=== PATIENT | female | born 1990 | race American Indian/Alaskan Native ===

== ENCOUNTER 2018-09-27 10:13 | Emergency (ER) | payer MEDICAID ==
--- NOTE | 2018-09-27 10:47 | Emergency Department Report ---
ED General Adult HPI - General Chief complaint: Nausea/Vomiting/Diarrhea Stated complaint: VOMIT BLOOD Time Seen by Provider: 09/27/18 10:41 Source: patient Mode of arrival: Ambulatory Limitations: No Limitations - History of Present Illness Initial comments: Patient is 28-year-old female with no significant past medical history. Patient presented to the ER stating that she had an accident one week ago but today she woke up and she had cough with some blood in it. Patient denied any fever, chills, shortness of breath. The patient denied any chest pain. - Related Data Home Medications Medication Instructions Recorded Confirmed Last Taken Pnv,Calcium 72/Iron/Folic Acid 1 tab PO DAILY 02/17/14 02/17/14 02/15/14 09:00 [Preplus Ca-Fe 27 mg-FA 1 mg Tb] Previous Rx's Medication Instructions Recorded Last Taken Type Ferrous Sulfate [Feosol 325 MG tab] 325 mg PO BID #60 tablet 02/18/14 Unknown Rx Ibuprofen [Motrin 600 MG tab] 600 mg PO Q6H PRN #30 tablet 02/18/14 Unknown Rx oxyCODONE /ACETAMINOPHEN [Percocet 1 tab PO Q6HR PRN #20 tablet 02/18/14 Unknown Rx 5/325] HYDROcodone/APAP 5-325 [[place] 1 each PO Q6HR PRN #8 tablet 01/25/15 Unknown Rx 5/325] Ondansetron [Zofran Odt] 4 mg SL Q6H PRN #8 tab.rapdis 01/25/15 Unknown Rx Hyoscyamine Subl [Levsin Sl 0.125 0.125 mg SL Q6HR PRN #10 tab 04/29/15 Unknown Rx TAB] Ondansetron [Zofran Odt] 4 mg PO Q6H PRN #14 tab.rapdis 04/29/15 Unknown Rx Sulfamethoxazole/Trimethoprim 1 each PO BID #14 tablet 04/29/15 Unknown Rx [Bactrim DS TAB] traMADol [Ultram] 50 mg PO Q6HR PRN #14 tablet 04/29/15 Unknown Rx Allergies Allergy/AdvReac Type Severity Reaction Status Date / Time metoclopramide HCl Allergy Mild Hives Verified 04/28/15 18:56 [From [facility]] ED Review of Systems ROS: Stated complaint: VOMIT BLOOD Other details as noted in HPI Comment: All other systems reviewed and negative Constitutional: denies: chills, fever Respiratory: denies: cough, shortness of breath, SOB with exertion, SOB at rest Cardiovascular: denies: chest pain, palpitations Gastrointestinal: denies: abdominal pain, nausea Musculoskeletal: denies: back pain ED Past Medical Hx - Past Medical History Previous Medical History?: Yes Hx Hypertension: No Hx Congestive Heart Failure: No Hx Diabetes: No Hx Deep Vein Thrombosis: No Hx Renal Disease: No Hx Sickle Cell Disease: No Hx Seizures: No Hx Asthma: No Hx COPD: No Hx HIV: No Additional medical history: "brain tumor from " - Surgical History Past Surgical History?: No - Social History Smoking Status: Current Every Day Smoker Substance Use Type: None - Medications Home Medications: Home Medications Medication Instructions Recorded Confirmed Last Taken Type Pnv,Calcium 72/Iron/Folic Acid 1 tab PO DAILY 02/17/14 02/17/14 02/15/14 09:00 History [Preplus Ca-Fe 27 mg-FA 1 mg Tb] Ferrous Sulfate [Feosol 325 MG tab] 325 mg PO BID #60 tablet 02/18/14 Unknown Rx Ibuprofen [Motrin 600 MG tab] 600 mg PO Q6H PRN #30 tablet 02/18/14 Unknown Rx oxyCODONE /ACETAMINOPHEN [Percocet 1 tab PO Q6HR PRN #20 tablet 02/18/14 Unknown Rx 5/325] HYDROcodone/APAP 5-325 [[place] 1 each PO Q6HR PRN #8 tablet 01/25/15 Unknown Rx 5/325] Ondansetron [Zofran Odt] 4 mg SL Q6H PRN #8 tab.rapdis 01/25/15 Unknown Rx Hyoscyamine Subl [Levsin Sl 0.125 0.125 mg SL Q6HR PRN #10 tab 04/29/15 Unknown Rx TAB] Ondansetron [Zofran Odt] 4 mg PO Q6H PRN #14 tab.rapdis 04/29/15 Unknown Rx Sulfamethoxazole/Trimethoprim 1 each PO BID #14 tablet 04/29/15 Unknown Rx [Bactrim DS TAB] traMADol [Ultram] 50 mg PO Q6HR PRN #14 tablet 04/29/15 Unknown Rx ED Physical Exam - General Limitations: No Limitations General appearance: alert, in no apparent distress - Head Head exam: Present: atraumatic, normocephalic, normal inspection - Eye Eye exam: Present: normal appearance - ENT ENT exam: Present: normal exam, normal orophraynx, mucous membranes moist - Neck Neck exam: Present: normal inspection, full ROM. Absent: tenderness, meningismus, lymphadenopathy, thyromegaly - Respiratory Respiratory exam: Present: normal lung sounds bilaterally - Cardiovascular Cardiovascular Exam: Present: regular rate, normal rhythm, normal heart sounds - GI/Abdominal GI/Abdominal exam: Present: soft, normal bowel sounds. Absent: distended, tenderness, guarding, rebound, rigid, organomegaly, mass, bruit, pulsatile mass, hernia - Extremities Exam Extremities exam: Present: normal inspection, full ROM, normal capillary refill. Absent: tenderness, pedal edema, calf tenderness - Back Exam Back exam: Present: normal inspection, full ROM. Absent: CVA tenderness (R), CVA tenderness (L) - Neurological Exam Neurological exam: Present: alert, oriented X3, CN II-XII intact, normal gait, reflexes normal - Skin Skin exam: Present: warm, intact, normal color ED Course Vital Signs 09/27/18 09/27/18 10:19 10:41 Temperature 98.1 F Pulse Rate 57 L Respiratory 16 16 Rate O2 Sat by Pulse 100 Oximetry ED Medical Decision Making - Radiology Data Radiology results: report reviewed Chest x-ray is unremarkable. Critical care attestation.: If time is entered above; I have spent that time in minutes in the direct care of this critically ill patient, excluding procedure time. ED Disposition Clinical Impression: Hemoptysis Disposition: - TO HOME OR SELFCARE Is pt being admited?: No Condition: Stable Instructions: Acute Hemoptysis (ED) Referrals: SUMIT GARCIA MD [Referring] - 3-5 Days
--- NOTE | 2018-09-27 11:04 | XRay Report ---
AP CHEST: HISTORY: chest pain AP view of the chest demonstrates a normal mediastinal and cardiac contour with clear lungs and normal bony and soft tissue structures. IMPRESSION: Unremarkable AP chest.
== END 2018-09-27 11:40 | disposition home or self-care (01) ==
LOC: ED 10:13
DX: R04.2 Hemoptysis (principal); F17.200 Nicotine dependence, unspecified, uncomplicated; Z88.8 Allergy status to other drugs, medicaments and biological substances
CPT/HCPCS: 71045; 99283

== ENCOUNTER 2019-11-12 15:47 | Emergency (ER) | payer MEDICAID, OTHER ==
[2019-11-12 16:29] VITALS: BP 121/43
--- NOTE | 2019-11-12 16:35 | Emergency Department Report ---
ED Rash HPI - HPI Chief Complaint: Skin Rash Stated Complaint: BREAKING OUT Time Seen by Provider: 11/12/19 16:31 Location: Other Suspected Cause: Other Rash Symptoms: Yes Itching, No Facial Swelling, No Tongue/Oral Swelling, No Breathing Difficulties, No Choking Sensation, No Wheezing/Dyspnea, No Peeling, No Blistering, No Fever, No Lightheaded, No Malaise, No Myalgias Severity: mild Other History: Patient is a 29-year-old -[place] female that comes to the ER with HER-2 children today. The small child has scabies. Since the 5-yea r-old is broken out the older child and now the mother has a similar rash. No systemic symptoms. Vital signs stable. ED Review of Systems ROS: Stated complaint: BREAKING OUT Other details as noted in HPI Comment: All other systems reviewed and negative ED Past Medical Hx - Past Medical History Previous Medical History?: Yes Hx Hypertension: No Hx Congestive Heart Failure: No Hx Diabetes: No Hx Deep Vein Thrombosis: No Hx Renal Disease: No Hx Sickle Cell Disease: No Hx Seizures: No Hx Asthma: No Hx COPD: No Hx HIV: No Additional medical history: "brain tumor from " - Surgical History Past Surgical History?: No - Family History Family history: no significant - Social History Smoking Status: Current Every Day Smoker Substance Use Type: None - Medications Home Medications: Home Medications Medication Instructions Recorded Confirmed Last Taken Type Pnv,Calcium 72/Iron/Folic Acid 1 tab PO DAILY 02/17/14 02/17/14 02/15/14 09:00 History [Preplus Ca-Fe 27 mg-FA 1 mg Tb] Ferrous Sulfate [Feosol 325 MG tab] 325 mg PO BID #60 tablet 02/18/14 Unknown Rx Ibuprofen [Motrin 600 MG tab] 600 mg PO Q6H PRN #30 tablet 02/18/14 Unknown Rx oxyCODONE /ACETAMINOPHEN [Percocet 1 tab PO Q6HR PRN #20 tablet 02/18/14 Unknown Rx 5/325] HYDROcodone/APAP 5-325 [[place] 1 each PO Q6HR PRN #8 tablet 01/25/15 Unknown Rx 5/325] Ondansetron [Zofran Odt] 4 mg SL Q6H PRN #8 tab.rapdis 01/25/15 Unknown Rx Hyoscyamine Subl [Levsin Sl 0.125 0.125 mg SL Q6HR PRN #10 tab 04/29/15 Unknown Rx TAB] Ondansetron [Zofran Odt] 4 mg PO Q6H PRN #14 tab.rapdis 04/29/15 Unknown Rx Sulfamethoxazole/Trimethoprim 1 each PO BID #14 tablet 04/29/15 Unknown Rx [Bactrim DS TAB] traMADoL [Ultram] 50 mg PO Q6HR PRN #14 tablet 04/29/15 Unknown Rx Permethrin 5% [Acticin 5% CREAM] 1 applicatio TP ONCE #1 tube 11/12/19 Unknown Rx Rash Exam - Exam General: Vital signs noted. No distress. Alert and acting appropriately. HEENT: No Periorbital Edema, No Conjuctival Injection, No Chemosis, No Perioral Edema, No Tongue Edema, No Uvular Edema, No Compromised Airway, No Drooling Lungs: Yes Good Air Exchange (Normal Breath Sounds), No Wheezes, No Ronchi, No Stridor, No Cough, No Labored Respirations, No Retractions, No Use of Accessory Muscles, No Other Abnormal Lung Sounds Heart: Yes Regular, No Murmur Skin: Yes Other Other: Positive: Abdomen Normal, Neurologic Normal, Musculoskeletal Normal ED Course Vital Signs 11/12/19 16:28 Temperature 98.7 F Pulse Rate 67 Respiratory 18 Rate Blood Pressure 121/43 O2 Sat by Pulse 99 Oximetry ED Medical Decision Making - Medical Decision Making SON HAS SCABIES Rash consistent with scabies. Patient being discharged home with Elimite. Vital Signs 11/12/19 16:28 Temperature 98.7 F Pulse Rate 67 Respiratory 18 Rate Blood Pressure 121/43 O2 Sat by Pulse 99 Oximetry - Differential Diagnosis RASH Critical care attestation.: If time is entered above; I have spent that time in minutes in the direct care of this critically ill patient, excluding procedure time. ED Disposition Clinical Impression: Scabies Disposition: DC-01 TO HOME OR SELFCARE Is pt being admited?: No Does the pt Need Aspirin: No Condition: Stable Instructions: Scabies (ED) Prescriptions: Permethrin 5% [Acticin 5% CREAM] 1 applicatio TP ONCE #1 tube Referrals: ROC FUENTES MD [Staff Physician] - 3-5 Days Time of Disposition: 16:32
== END 2019-11-12 16:38 | disposition home or self-care (01) ==
LOC: ED 15:47
DX: B86 Scabies (principal); F17.200 Nicotine dependence, unspecified, uncomplicated; Z79.1 Long term (current) use of non-steroidal anti-inflammatories (NSAID); Z79.899 Other long term (current) drug therapy
CPT/HCPCS: 99282

== ENCOUNTER 2021-02-22 10:12 | Emergency (ER) | payer OTHER ==
[2021-02-22 10:26] VITALS: BP 110/66
--- NOTE | 2021-02-22 10:44 | Emergency Department Report ---
ED ENT HPI - General Chief complaint: Earache Stated complaint: LFT EAR HURT Time Seen by Provider: 02/22/21 10:33 Source: patient Mode of arrival: Ambulatory Limitations: No Limitations - History of Present Illness Initial comments: This is a 31-year-old female nontoxic, well nourished in appearance, no acute signs of distress presents to the ED with c/o of left earache. Patient denies any ear drainage. Patient denies any trauma to the area. Patient denies any mastoid tenderness or tragus tenderness. Patient denies hearing decrease or hearing changes. Patient denies any fever, chills, nausea, vomiting, chest pain, short of breath, headache or stiff neck. Patient stated allergies to metoclopramide. MD complaint: ear pain -: days(s) Location: L ear Severity: mild Severity scale (0 -10): 8 Quality: aching Consistency: constant Improves with: none Worsens with: none Associated Symptoms: denies: fever, cough, gum swelling, toothache, pain with swallowing, sore throat, tinnitus, hearing loss, discharge from ear, rhinorrhea - Related Data Home Medications Medication Instructions Recorded Confirmed Last Taken Pnv,Calcium 72/Iron/Folic Acid 1 tab PO DAILY 02/17/14 02/17/14 02/15/14 09:00 [Preplus Ca-Fe 27 mg-FA 1 mg Tb] Previous Rx's Medication Instructions Recorded Last Taken Type Ferrous Sulfate [Feosol 325 MG tab] 325 mg PO BID #60 tablet 02/18/14 Unknown Rx Ibuprofen [Motrin 600 MG tab] 600 mg PO Q6H PRN #30 tablet 02/18/14 Unknown Rx oxyCODONE /ACETAMINOPHEN [Percocet 1 tab PO Q6HR PRN #20 tablet 02/18/14 Unknown Rx 5/325] HYDROcodone/APAP 5-325 [[place] 1 each PO Q6HR PRN #8 tablet 01/25/15 Unknown Rx 5/325] Ondansetron [Zofran Odt] 4 mg SL Q6H PRN #8 tab.rapdis 01/25/15 Unknown Rx Hyoscyamine Subl [Levsin Sl 0.125 0.125 mg SL Q6HR PRN #10 tab 04/29/15 Unknown Rx TAB] Ondansetron [Zofran Odt] 4 mg PO Q6H PRN #14 tab.rapdis 04/29/15 Unknown Rx Sulfamethoxazole/Trimethoprim 1 each PO BID #14 tablet 04/29/15 Unknown Rx [Bactrim DS TAB] traMADoL [Ultram] 50 mg PO Q6HR PRN #14 tablet 04/29/15 Unknown Rx Permethrin 5% [Acticin 5% CREAM] 1 applicatio TP ONCE #1 tube 11/12/19 Unknown Rx Amoxicillin [Amoxicillin TAB] 875 mg PO BID #20 tablet 02/22/21 Unknown Rx Allergies Allergy/AdvReac Type Severity Reaction Status Date / Time metoclopramide HCl Allergy Mild Hives Verified 11/12/19 16:27 [From [facility]] ED Dental HPI - General Chief complaint: Earache Stated complaint: LFT EAR HURT Time Seen by Provider: 02/22/21 10:33 Source: patient Mode of arrival: Ambulatory Limitations: No Limitations - Related Data Home Medications Medication Instructions Recorded Confirmed Last Taken Pnv,Calcium 72/Iron/Folic Acid 1 tab PO DAILY 02/17/14 02/17/14 02/15/14 09:00 [Preplus Ca-Fe 27 mg-FA 1 mg Tb] Previous Rx's Medication Instructions Recorded Last Taken Type Ferrous Sulfate [Feosol 325 MG tab] 325 mg PO BID #60 tablet 02/18/14 Unknown Rx Ibuprofen [Motrin 600 MG tab] 600 mg PO Q6H PRN #30 tablet 02/18/14 Unknown Rx oxyCODONE /ACETAMINOPHEN [Percocet 1 tab PO Q6HR PRN #20 tablet 02/18/14 Unknown Rx 5/325] HYDROcodone/APAP 5-325 [[place] 1 each PO Q6HR PRN #8 tablet 01/25/15 Unknown Rx 5/325] Ondansetron [Zofran Odt] 4 mg SL Q6H PRN #8 tab.rapdis 01/25/15 Unknown Rx Hyoscyamine Subl [Levsin Sl 0.125 0.125 mg SL Q6HR PRN #10 tab 04/29/15 Unknown Rx TAB] Ondansetron [Zofran Odt] 4 mg PO Q6H PRN #14 tab.rapdis 04/29/15 Unknown Rx Sulfamethoxazole/Trimethoprim 1 each PO BID #14 tablet 04/29/15 Unknown Rx [Bactrim DS TAB] traMADoL [Ultram] 50 mg PO Q6HR PRN #14 tablet 04/29/15 Unknown Rx Permethrin 5% [Acticin 5% CREAM] 1 applicatio TP ONCE #1 tube 11/12/19 Unknown Rx Amoxicillin [Amoxicillin TAB] 875 mg PO BID #20 tablet 02/22/21 Unknown Rx Allergies Allergy/AdvReac Type Severity Reaction Status Date / Time metoclopramide HCl Allergy Mild Hives Verified 11/12/19 16:27 [From [facility]] ED Review of Systems ROS: Stated complaint: LFT EAR HURT Other details as noted in HPI Comment: All other systems reviewed and negative Constitutional: denies: chills, fever Eyes: denies: eye pain, eye discharge, vision change ENT: ear pain. denies: throat pain Respiratory: denies: cough, shortness of breath, wheezing Cardiovascular: denies: chest pain, palpitations Endocrine: no symptoms reported Gastrointestinal: denies: abdominal pain, nausea, diarrhea Genitourinary: denies: urgency, dysuria, discharge Musculoskeletal: denies: back pain, joint swelling, arthralgia Skin: denies: rash, lesions Neurological: denies: headache, weakness, paresthesias Psychiatric: denies: anxiety, depression Hematological/Lymphatic: denies: easy bleeding, easy bruising ED Past Medical Hx - Past Medical History Previous Medical History?: Yes Hx Hypertension: No Hx Congestive Heart Failure: No Hx Diabetes: No Hx Deep Vein Thrombosis: No Hx Renal Disease: No Hx Sickle Cell Disease: No Hx Seizures: No Hx Asthma: No Hx COPD: No Hx HIV: No Additional medical history: "brain tumor from " - Surgical History Past Surgical History?: Yes - Social History Smoking Status: Current Every Day Smoker Substance Use Type: None - Medications Home Medications: Home Medications Medication Instructions Recorded Confirmed Last Taken Type Pnv,Calcium 72/Iron/Folic Acid 1 tab PO DAILY 02/17/14 02/17/14 02/15/14 09:00 History [Preplus Ca-Fe 27 mg-FA 1 mg Tb] Ferrous Sulfate [Feosol 325 MG tab] 325 mg PO BID #60 tablet 02/18/14 Unknown Rx Ibuprofen [Motrin 600 MG tab] 600 mg PO Q6H PRN #30 tablet 02/18/14 Unknown Rx oxyCODONE /ACETAMINOPHEN [Percocet 1 tab PO Q6HR PRN #20 tablet 02/18/14 Unknown Rx 5/325] HYDROcodone/APAP 5-325 [[place] 1 each PO Q6HR PRN #8 tablet 01/25/15 Unknown Rx 5/325] Ondansetron [Zofran Odt] 4 mg SL Q6H PRN #8 tab.rapdis 01/25/15 Unknown Rx Hyoscyamine Subl [Levsin Sl 0.125 0.125 mg SL Q6HR PRN #10 tab 04/29/15 Unknown Rx TAB] Ondansetron [Zofran Odt] 4 mg PO Q6H PRN #14 tab.rapdis 04/29/15 Unknown Rx Sulfamethoxazole/Trimethoprim 1 each PO BID #14 tablet 04/29/15 Unknown Rx [Bactrim DS TAB] traMADoL [Ultram] 50 mg PO Q6HR PRN #14 tablet 04/29/15 Unknown Rx Permethrin 5% [Acticin 5% CREAM] 1 applicatio TP ONCE #1 tube 11/12/19 Unknown Rx Amoxicillin [Amoxicillin TAB] 875 mg PO BID #20 tablet 02/22/21 Unknown Rx ED Physical Exam - General Limitations: No Limitations General appearance: alert, in no apparent distress - Head Head exam: Present: atraumatic, normocephalic - Eye Eye exam: Present: normal appearance - Expanded ENT Exam Expanded Ear exam: Present: normal external inspection TM/Canal exam: Erythema: Left TM, Bulging: Left TM Mouth exam: Present: normal external inspection, tongue normal. Absent: dr oolincamila, trismus, muffled voice Teeth exam: Present: normal inspection Throat exam: Positive: normal inspection. Negative: tonsillar erythema, tonsill omegaly, tonsillar exudate, R peritonsillar mass, L peritonsillar mass - Neck Neck exam: Present: normal inspection, full ROM. Absent: lymphadenopathy - Respiratory Respiratory exam: Absent: respiratory distress - Cardiovascular Cardiovascular Exam: Present: regular rate - Extremities Exam Extremities exam: Present: full ROM - Back Exam Back exam: Present: full ROM - Neurological Exam Neurological exam: Present: alert, oriented X3, normal gait - Psychiatric Psychiatric exam: Present: normal affect, normal mood - Skin Skin exam: Present: warm, dry, intact, normal color. Absent: rash ED Course Vital Signs 02/22/21 10:25 Temperature 97.9 F Pulse Rate 68 Respiratory 19 Rate Blood Pressure 110/66 O2 Sat by Pulse 100 Oximetry - Reevaluation(s) Reevaluation #1: 02/22/21 10:52 Patient is speaking in full sentences with no signs of distress noted. ED Medical Decision Making - Medical Decision Making Patient be treated with amoxicillin. Vitals stable. Patient was instructed to follow-up with a primary care doctor in 3-5 days or if symptoms worsen and continue return to emergency room as soon as possible. At time of discharge, the patient does not seem toxic or ill in appearance. No acute signs of distress noted. Patient agrees to discharge treatment plan of care. No further questions noted by the patient. Critical care attestation.: If time is entered above; I have spent that time in minutes in the direct care of this critically ill patient, excluding procedure time. ED Disposition Clinical Impression: Left otitis media Qualifiers: Otitis media type: unspecified Qualified Code(s): H66.92 - Otitis media, unspecified, left ear Disposition: HOME / SELF CARE / HOMELESS Is pt being admited?: No Does the pt Need Aspirin: No Condition: Stable Instructions: Otitis Media, Adult, [id number] Additional Instructions: Follow-up with a primary care doctor in 3-5 days or if symptoms worsen and continue return to emergency room as soon as possible. Prescriptions: Amoxicillin [Amoxicillin TAB] 875 mg PO BID #20 tablet Referrals: PRIMARY CAREMD [Referring] - 3-5 Days ROC FUENTES MD [Staff Physician] - 3-5 Days Forms: Work/School Release Form(ED) Time of Disposition: 10:51
== END 2021-02-22 11:25 | disposition home or self-care (01) ==
LOC: ED 10:12
DX: H66.92 Otitis media, unspecified, left ear (principal); D49.6 Neoplasm of unspecified behavior of brain; F17.200 Nicotine dependence, unspecified, uncomplicated; Z88.8 Allergy status to other drugs, medicaments and biological substances
CPT/HCPCS: 99281

== ENCOUNTER 2021-09-06 03:34 | Emergency (ER) | payer OTHER ==
[2021-09-06 03:46] VITALS: BP 126/81
[2021-09-06] MEDS ORDERED: predniSONE 20 MG TAB PO ONE (06:17)
[2021-09-06] MEDS ORDERED: KETOROLAC 10 MG TAB PO ONE (06:17)
--- NOTE | 2021-09-06 06:22 | Emergency Department Report ---
ED ENT HPI - General Chief complaint: Pain General Stated complaint: EARACHE,HEARING LOSS,RIGHT SIDE PAIN Time Seen by Provider: 09/06/21 05:57 Source: patient Mode of arrival: Ambulatory Limitations: No Limitations - History of Present Illness Initial comments: 31 yo black female with no pmh presents to the ed for evaluation of right ear pain for one day. She denies injury or trauma and states that pain is 8/10. MD complaint: ear pain -: Sudden, days(s) (1) Location: R ear Severity: severe Quality: aching Consistency: constant Associated Symptoms: hearing loss, discharge from ear. denies: fever, cough, sore throat, rhinorrhea - Related Data Home Medications Medication Instructions Recorded Confirmed Last Taken Pnv,Calcium 72/Iron/Folic Acid 1 tab PO DAILY 02/17/14 02/17/14 02/15/14 09:00 [Preplus Ca-Fe 27 mg-FA 1 mg Tb] Previous Rx's Medication Instructions Recorded Last Taken Type Ferrous Sulfate [Feosol 325 MG tab] 325 mg PO BID #60 tablet 02/18/14 Unknown Rx Ibuprofen [Motrin 600 MG tab] 600 mg PO Q6H PRN #30 tablet 02/18/14 Unknown Rx oxyCODONE /ACETAMINOPHEN [Percocet 1 tab PO Q6HR PRN #20 tablet 02/18/14 Unknown Rx 5/325] HYDROcodone/APAP 5-325 [Holiday 1 each PO Q6HR PRN #8 tablet 01/25/15 Unknown Rx 5/325] Ondansetron [Zofran Odt] 4 mg SL Q6H PRN #8 tab.rapdis 01/25/15 Unknown Rx Hyoscyamine Subl [Levsin Sl 0.125 0.125 mg SL Q6HR PRN #10 tab 04/29/15 Unknown Rx TAB] Ondansetron [Zofran Odt] 4 mg PO Q6H PRN #14 tab.rapdis 04/29/15 Unknown Rx Sulfamethoxazole/Trimethoprim 1 each PO BID #14 tablet 04/29/15 Unknown Rx [Bactrim DS TAB] traMADoL [Ultram] 50 mg PO Q6HR PRN #14 tablet 04/29/15 Unknown Rx Permethrin 5% [Acticin 5% CREAM] 1 applicatio TP ONCE #1 tube 07/07/20 Unknown Rx Amoxicillin [Amoxicillin TAB] 875 mg PO BID #20 tablet 02/22/21 Unknown Rx Neomy/Polymyx B/Hc (Otic) Soln 4 drops RTEAR TID #1 bottle 09/06/21 Unknown Rx [Cortisporin (Otic) Soln] Allergies Allergy/AdvReac Type Severity Reaction Status Date / Time metoclopramide HCl Allergy Mild Hives Verified 11/12/19 16:27 [From [facility]] ED Dental HPI - General Chief complaint: Pain General Stated complaint: EARACHE,HEARING LOSS,RIGHT SIDE PAIN Time Seen by Provider: 09/06/21 05:57 Source: patient Mode of arrival: Ambulatory Limitations: No Limitations - Related Data Home Medications Medication Instructions Recorded Confirmed Last Taken Pnv,Calcium 72/Iron/Folic Acid 1 tab PO DAILY 02/17/14 02/17/14 02/15/14 09:00 [Preplus Ca-Fe 27 mg-FA 1 mg Tb] Previous Rx's Medication Instructions Recorded Last Taken Type Ferrous Sulfate [Feosol 325 MG tab] 325 mg PO BID #60 tablet 02/18/14 Unknown Rx Ibuprofen [Motrin 600 MG tab] 600 mg PO Q6H PRN #30 tablet 02/18/14 Unknown Rx oxyCODONE /ACETAMINOPHEN [Percocet 1 tab PO Q6HR PRN #20 tablet 02/18/14 Unknown Rx 5/325] HYDROcodone/APAP 5-325 [Holiday 1 each PO Q6HR PRN #8 tablet 01/25/15 Unknown Rx 5/325] Ondansetron [Zofran Odt] 4 mg SL Q6H PRN #8 tab.rapdis 01/25/15 Unknown Rx Hyoscyamine Subl [Levsin Sl 0.125 0.125 mg SL Q6HR PRN #10 tab 04/29/15 Unknown Rx TAB] Ondansetron [Zofran Odt] 4 mg PO Q6H PRN #14 tab.rapdis 04/29/15 Unknown Rx Sulfamethoxazole/Trimethoprim 1 each PO BID #14 tablet 04/29/15 Unknown Rx [Bactrim DS TAB] traMADoL [Ultram] 50 mg PO Q6HR PRN #14 tablet 04/29/15 Unknown Rx Permethrin 5% [Acticin 5% CREAM] 1 applicatio TP ONCE #1 tube 11/12/19 Unknown Rx Amoxicillin [Amoxicillin TAB] 875 mg PO BID #20 tablet 02/22/21 Unknown Rx Neomy/Polymyx B/Hc (Otic) Soln 4 drops RTEAR TID #1 bottle 09/06/21 Unknown Rx [Cortisporin (Otic) Soln] Allergies Allergy/AdvReac Type Severity Reaction Status Date / Time metoclopramide HCl Allergy Mild Hives Verified 11/12/19 16:27 [From [facility]] ED Review of Systems ROS: Stated complaint: EARACHE,HEARING LOSS,RIGHT SIDE PAIN Other details as noted in HPI Comment: All other systems reviewed and negative Constitutional: denies: chills, fever ENT: ear pain, hearing loss Respiratory: denies: cough, shortness of breath, SOB with exertion, SOB at rest, stridor, wheezing Cardiovascular: denies: chest pain, palpitations, dyspnea on exertion, orthopnea, edema, syncope, paroxysmal nocturnal dyspnea Gastrointestinal: denies: abdominal pain, nausea, vomiting Genitourinary: denies: urgency, dysuria, frequency Musculoskeletal: denies: back pain Skin: denies: rash, lesions Neurological: denies: headache, weakness ED Past Medical Hx - Past Medical History Hx Hypertension: No Hx Congestive Heart Failure: No Hx Diabetes: No Hx Deep Vein Thrombosis: No Hx Renal Disease: No Hx Sickle Cell Disease: No Hx Seizures: No Hx Asthma: No Hx COPD: No Hx HIV: No Additional medical history: "brain tumor from " - Social History Smoking Status: Current Every Day Smoker Substance Use Type: None - Medications Home Medications: Home Medications Medication Instructions Recorded Confirmed Last Taken Type Pnv,Calcium 72/Iron/Folic Acid 1 tab PO DAILY 02/17/14 02/17/14 02/15/14 09:00 History [Preplus Ca-Fe 27 mg-FA 1 mg Tb] Ferrous Sulfate [Feosol 325 MG tab] 325 mg PO BID #60 tablet 02/18/14 Unknown Rx Ibuprofen [Motrin 600 MG tab] 600 mg PO Q6H PRN #30 tablet 02/18/14 Unknown Rx oxyCODONE /ACETAMINOPHEN [Percocet 1 tab PO Q6HR PRN #20 tablet 02/18/14 Unknown Rx 5/325] HYDROcodone/APAP 5-325 [Holiday 1 each PO Q6HR PRN #8 tablet 01/25/15 Unknown Rx 5/325] Ondansetron [Zofran Odt] 4 mg SL Q6H PRN #8 tab.rapdis 01/25/15 Unknown Rx Hyoscyamine Subl [Levsin Sl 0.125 0.125 mg SL Q6HR PRN #10 tab 04/29/15 Unknown Rx TAB] Ondansetron [Zofran Odt] 4 mg PO Q6H PRN #14 tab.rapdis 04/29/15 Unknown Rx Sulfamethoxazole/Trimethoprim 1 each PO BID #14 tablet 04/29/15 Unknown Rx [Bactrim DS TAB] traMADoL [Ultram] 50 mg PO Q6HR PRN #14 tablet 04/29/15 Unknown Rx Permethrin 5% [Acticin 5% CREAM] 1 applicatio TP ONCE #1 tube 11/12/19 Unknown Rx Amoxicillin [Amoxicillin TAB] 875 mg PO BID #20 tablet 02/22/21 Unknown Rx Neomy/Polymyx B/Hc (Otic) Soln 4 drops RTEAR TID #1 bottle 09/06/21 Unknown Rx [Cortisporin (Otic) Soln] ED Physical Exam - General Limitations: No Limitations General appearance: alert, in no apparent distress - Head Head exam: Present: atraumatic, normocephalic - Eye Eye exam: Present: normal appearance. Absent: conjunctival injection - Expanded ENT Exam Expanded TM/Canal exam: Canal Discharge: Right TM, Canal Tenderness: Right TM Mouth exam: Present: normal external inspection - Neck Neck exam: Present: normal inspection - Respiratory Respiratory exam: Absent: respiratory distress - Cardiovascular Cardiovascular Exam: Present: regular rate - GI/Abdominal GI/Abdominal exam: Absent: distended - Extremities Exam Extremities exam: Present: normal inspection - Back Exam Back exam: Present: normal inspection - Neurological Exam Neurological exam: Present: alert, oriented X3 - Psychiatric Psychiatric exam: Present: normal affect, normal mood - Skin Skin exam: Present: warm, dry, intact, normal color ED Course Vital Signs 09/06/21 03:44 Temperature 98.8 F Pulse Rate 88 Respiratory 18 Rate Blood Pressure 126/81 [Right] O2 Sat by Pulse 100 Oximetry ED Medical Decision Making - Medical Decision Making 31 yo black female with no pmh presents to the ed for evaluation of right ear pain for one day. She denies injury or trauma and states that pain is 8/10. Exam and symptoms consistent with otitis externa. Patient treated with one time dose of steroids and toradol for pain while in ED and will be discharged home with cortisporin ear drops. She is advised to take medications as prescribed and follow up with pcp if no improvement or worsening symptoms. She verbalized understanding of and agreement with plan of care. Critical care attestation.: If time is entered above; I have spent that time in minutes in the direct care of this critically ill patient, excluding procedure time. ED Disposition Clinical Impression: Right otitis externa Qualifiers: Otitis externa type: unspecified type Chronicity: acute Qualified Code(s): H60.501 - Unspecified acute noninfective otitis externa, right ear Disposition: HOME / SELF CARE / HOMELESS Is pt being admited?: No Does the pt Need Aspirin: No Condition: Stable Instructions: Otitis Externa, [id number], Ear Drops, Adult, [id number] Additional Instructions: Take medication as prescribed. Follow-up with primary care provider if no i mprovement or worsening symptoms. Return to the emergency department as needed. Prescriptions: Neomy/Polymyx B/Hc (Otic) Soln [Cortisporin (Otic) Soln] 4 drops RTEAR TID #1 bottle Referrals: PRIMARY CARE, [Primary Care Provider] - 3-5 Days Forms: Work/School Release Form(ED) Time of Disposition: 06:21
== END 2021-09-06 06:35 | disposition home or self-care (01) ==
LOC: ED 03:34
DX: H60.91 Unspecified otitis externa, right ear (principal); F17.200 Nicotine dependence, unspecified, uncomplicated; Z79.899 Other long term (current) drug therapy
CPT/HCPCS: 99282

== ENCOUNTER 2021-10-02 13:17 | Emergency (ER) | payer OTHER ==
[2021-10-02 13:52] VITALS: BP 120/63
[2021-10-02] MEDS ORDERED: HYDROcodone/ACETAMINOPHEN 5-325 MG TAB PO ONE (14:19)
[2021-10-02] MEDS ORDERED: IBUPROFEN 600 MG TAB PO ONE (14:19)
[2021-10-02] MEDS ORDERED: ONDANSETRON 4 MG ODT TAB PO ONE (14:19)
--- NOTE | 2021-10-02 14:48 | XRay Report ---
Right hand-4 views INDICATION: RIGHT HAND PAIN AND SWELLING. COMPARISON: None available. IMPRESSION: Comminuted fracture at the neck of the little finger metacarpal with mild volar angulati on of the distal fracture component and surrounding soft tissue swelling. No significant DJD. Signer Name: Reynaldo Rainey MD Signed: 10/02/2021 2:44 PM Workstation Name: [id number]
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
== END 2021-10-02 17:36 | disposition home or self-care (01) ==
LOC: ED 13:17
DX: S62.336A Displaced fracture of neck of fifth metacarpal bone, right hand, initial encounter for closed fracture (principal); S60.221A Contusion of right hand, initial encounter; F17.200 Nicotine dependence, unspecified, uncomplicated; X58.XXXA Exposure to other specified factors, initial encounter; Y93.89 Activity, other specified; Y92.89 Other specified places as the place of occurrence of the external cause; Y99.8 Other external cause status
CPT/HCPCS: 99283; J3490; Q0162